=== PATIENT | female | born 1940 | race Caucasian/White ===

== ENCOUNTER 2021-07-06 13:42 | Inpatient (IN) | payer OTHER ==
[~2021-07-06] VITALS: Ht 149.9 cm; Wt 103.9 kg
[2021-07-06 17:05] LABS: HEMOGLOBIN 8.6 gm/dl (12.3-15.3); RED BLOOD COUNT 2.74 M/UL (4.00-5.10); WHITE BLOOD COUNT 8.9 K/UL (4.5-11.0)
[2021-07-06] MEDS ORDERED: TRELEGY ELLIPT1 EAC1 PO (17:17)
[2021-07-06] MEDS ORDERED: IBU800 MG PO (17:18)
[2021-07-06] MEDS ORDERED: PROVENTIL HFA6.7 GM INH (17:18)
[2021-07-06] MEDS ORDERED: BUMETANIDE1 MG PO (17:19)
[2021-07-06] MEDS ORDERED: DOXAZOSIN MESYLA2 MG PO (17:21)
[2021-07-06] MEDS ORDERED: LOKELMA10 GM PO (17:22)
[2021-07-06] MEDS ORDERED: KLONOPIN0.5 MG PO (17:28)
[2021-07-06] MEDS ORDERED: ISOSORBIDE MONO60 MG PO (17:28)
[2021-07-06] MEDS ORDERED: METFORMIN HCL500 MG PO ×2 (17:29)
[2021-07-06] MEDS ORDERED: IPRAT-ALBUT 0.5-3 ML INH (17:30)
[2021-07-06] MEDS ORDERED: FLONASE 0.05% N16 GM (17:31)
[2021-07-06] MEDS ORDERED: ATORVASTATIN CA10 MG PO (17:31)
[2021-07-06] MEDS ORDERED: MONTELUKAST SOD10 MG PO (17:32)
[2021-07-06] MEDS ORDERED: LEXAPRO10 MG PO (17:32)
[2021-07-06] MEDS ORDERED: FAMOTIDINE40 MG PO (17:34)
[2021-07-06] MEDS ORDERED: TOLTERODINE TART4 MG PO (17:37)
[2021-07-06] MEDS ORDERED: BYSTOLIC10 MG PO (17:37)
[2021-07-06] MEDS ORDERED: ALENDRONATE SOD70 MG PO (17:38)
[2021-07-06] MEDS ORDERED: CYANOCOBAL1000 MCG/1 INJ (17:40)
[2021-07-06] MEDS ORDERED: LORATADINE10 MG PO (17:41)
[2021-07-06] MEDS ORDERED: NITROGLYCERIN0.4 MG SL (17:43)
[2021-07-06] MEDS ORDERED: ASPIRIN EC81 MG PO (17:43)
--- NOTE | 2021-07-06 19:06 | NUR ---
AT APPROXIMATELY 1700 DR[address] MICHAEL WAS AT THE PATIENTS BEDSIDE AND HAD REVIEWED THE PATIENTS CURRENT X-RAY AND IMAGING FROM [facility]. ONSENT WAS OBTAINED FOR A BEDSIDE THORACENTISIS. THE PATIENT WAS ALERT AND ORIENTED AND AGREEABLE TO PROCEDURE. SEE CHART FOR CONSENT. PT TOLERATED THE PROCEDURE WELL. SEE OPERATIVE NOTES. PLEURAL FLUID TAKEN TO LAB PER MD ORDER. PT IS CURRENTLY SITTING IN BED WITH FAMILY AT BEDSIDE. VSS. BREATHING VISIBLY IMPROVED AND PT REPORTS FEELING BETTER.
[2021-07-07 03:54] LABS: HEMOGLOBIN 7.8 gm/dl (12.3-15.3); RED BLOOD COUNT 2.47 M/UL (4.00-5.10); WHITE BLOOD COUNT 9.2 K/UL (4.5-11.0)
[2021-07-08 04:38] LABS: HEMOGLOBIN 8.2 gm/dl (12.3-15.3); RED BLOOD COUNT 2.66 M/UL (4.00-5.10); WHITE BLOOD COUNT 7.5 K/UL (4.5-11.0)
[2021-07-09 02:46] LABS: HEMOGLOBIN 7.9 gm/dl (12.3-15.3); RED BLOOD COUNT 2.55 M/UL (4.00-5.10); WHITE BLOOD COUNT 7.6 K/UL (4.5-11.0)
[2021-07-10 04:52] LABS: HEMOGLOBIN 8.8 gm/dl (12.3-15.3); WHITE BLOOD COUNT 8.6 K/UL (4.5-11.0)
[2021-07-10 04:54] LABS: RED BLOOD COUNT 2.81 M/UL (4.00-5.10)
[2021-07-11 05:16] LABS: RED BLOOD COUNT 2.9 M/UL (4.00-5.10)
[2021-07-11 05:18] LABS: WHITE BLOOD COUNT 10.9 K/UL (4.5-11.0)
[2021-07-11 19:11] LABS: ORGANISM ID Not indicated. (.); SPECIMEN SOURCE Urine (.); STREPTOCOCCUS PNEUMONIAE AG Negative (Negative)
[2021-07-12 05:33] LABS: HEMOGLOBIN 8.3 gm/dl (12.3-15.3); RED BLOOD COUNT 2.68 M/UL (4.00-5.10); WHITE BLOOD COUNT 9.8 K/UL (4.5-11.0)
[2021-07-12 15:17] LABS: TOTAL PROTEIN, BODY FLUID 2.4 gm/dL
--- NOTE | 2021-07-13 05:00 | NUR ---
SOAP SUDS ENEMA GIVEN PER MD ORDERS. PT DID NOT TOLERATE WELL.
[2021-07-13 05:35] LABS: HEMOGLOBIN 8.6 gm/dl (12.3-15.3); RED BLOOD COUNT 2.74 M/UL (4.00-5.10); WHITE BLOOD COUNT 11.1 K/UL (4.5-11.0)
[2021-07-15 19:50] LABS: LDH, BODY FLUID 236 U/L; TOTAL PROTEIN, BODY FLUID 2.2 gm/dL
[2021-07-15 20:04] LABS: BODY FLUID SOURCE PLEURAL
== END 2021-07-16 14:00 | disposition short-term general hospital (02) | DRG 193 ==
LOC: M/S 16:27 → CCU 16:27 → M/S 07-12 18:54 → CDU 07-13 11:39 → M/S 07-16 14:00
PROVIDERS: Internal Medicine; Internal Medicine Nephrology; Internal Medicine Pulmonary Disease; ADMIT Internal Medicine
PROC: 0W9B3ZZ Drainage of Left Pleural Cavity, Percutaneous Approach (ICD-10-PCS; principal; 2021-07-06)
PROC: 0W9B30Z Drainage of Left Pleural Cavity with Drainage Device, Percutaneous Approach (ICD-10-PCS; 2021-07-07)
PROC: B24BZZZ Ultrasonography of Heart with Aorta (ICD-10-PCS; 2021-07-10)
DX: J18.9 Pneumonia, unspecified organism (principal); J96.21 Acute and chronic respiratory failure with hypoxia; I50.33 Acute on chronic diastolic (congestive) heart failure; I13.0 Hypertensive heart and chronic kidney disease with heart failure and stage 1 through stage 4 chronic kidney disease, or unspecified chronic kidney disease; J44.0 Chronic obstructive pulmonary disease with (acute) lower respiratory infection; J44.1 Chronic obstructive pulmonary disease with (acute) exacerbation; J90 Pleural effusion, not elsewhere classified; J94.2 Hemothorax; Z68.42 Body mass index [BMI] 45.0-49.9, adult; N17.9 Acute kidney failure, unspecified; J98.19 Other pulmonary collapse; E87.4 Mixed disorder of acid-base balance; I47.1 Supraventricular tachycardia; N18.30 Chronic kidney disease, stage 3 unspecified; E11.22 Type 2 diabetes mellitus with diabetic chronic kidney disease; M19.91 Primary osteoarthritis, unspecified site; F41.9 Anxiety disorder, unspecified; E78.5 Hyperlipidemia, unspecified; M81.0 Age-related osteoporosis without current pathological fracture; K21.9 Gastro-esophageal reflux disease without esophagitis; M54.50 Low back pain, unspecified; G89.29 Other chronic pain; E66.01 Morbid (severe) obesity due to excess calories; E88.09 Other disorders of plasma-protein metabolism, not elsewhere classified; E87.6 Hypokalemia; K59.00 Constipation, unspecified; F03.90 Unspecified dementia, unspecified severity, without behavioral disturbance, psychotic disturbance, mood disturbance, and anxiety; I25.10 Atherosclerotic heart disease of native coronary artery without angina pectoris; D50.9 Iron deficiency anemia, unspecified; D53.9 Nutritional anemia, unspecified; Z20.822 Contact with and (suspected) exposure to COVID-19; E11.65 Type 2 diabetes mellitus with hyperglycemia; I27.20 Pulmonary hypertension, unspecified; H91.90 Unspecified hearing loss, unspecified ear; K44.9 Diaphragmatic hernia without obstruction or gangrene; Z99.81 Dependence on supplemental oxygen; Z79.84 Long term (current) use of oral hypoglycemic drugs; Z79.899 Other long term (current) drug therapy; Z79.82 Long term (current) use of aspirin; Z95.5 Presence of coronary angioplasty implant and graft; Z90.710 Acquired absence of both cervix and uterus; Z90.49 Acquired absence of other specified parts of digestive tract; Z98.890 Other specified postprocedural states; Z87.891 Personal history of nicotine dependence; S22.089S Unspecified fracture of T11-T12 vertebra, sequela; S22.040S Wedge compression fracture of fourth thoracic vertebra, sequela
CPT/HCPCS: 36415; 36600; 71045; 72050; 72072; 72110; 80048; 80053; 81001; 82040; 82550; 82553; 82570; 82803; 82962; 83036; 83540; 83550; 83605; 83615; 83735; 83880; 84100; 84132; 84133; 84155; 84156; 84157; 84300; 84484; 85025; 85027; 86140; 87040; 87070; 87086; 87205; 87278; 87899; 89051; 93005; 94640; 94664; 94760; 97110; 97110-GP-CQ; 97116; 97116-GP-CQ; 97161; 97165; 97530-GP-CQ; J0360; J1205; J1756; J2185; J2405; J3370; J3475; J7030; J7070; P9047; U0002